=== PATIENT | female | born 1995 | race Caucasian/White ===

== ENCOUNTER → 2017-05-25 | Outpatient (CLI) | payer BC ==
[2017-05-29 14:44] LABS: HERPES SIMPLEX VIRUS CULT NOT ISOLATED (NOT ISOLATED)
== END ==
LOC: C.LABSPEC 17:51
PROVIDERS: ATTEND Physician Assistant
DX: N90.89 Other specified noninflammatory disorders of vulva and perineum (principal)

== ENCOUNTER → 2017-05-25 | Outpatient (CLI) | payer BC | LOC: C.PAPS 16:53 | PROVIDERS: ATTEND Physician Assistant | DX: N93.0 Postcoital and contact bleeding (principal) ==